=== PATIENT | male | born 1960 | race Caucasian/White ===

== ENCOUNTER 2016-10-22 07:35 | Emergency (ER) | payer OTHER ==
--- NOTE | 2016-10-22 09:21 | ED NURSING NOTES ---
Clinical Report - Nurses [facility] [address] [place] [address] 10/22/2016 7:36 Patient: SUMANTH HICKS TRIAGE Triage time 07:48. Chief Complaint: (middle back pain, right arm tingling, and short of breath). Alert. --07:51 Veda Jernigan R.N. 07:47 10/22/16. BP: 132/86. HR: 60. RR: 16. O2 saturation: 99%. Pain level now: 310. Additional comments: pain 3/10 now, was 10/10 dull stabbing pain at 6am. --07:51 Veda Jernigan R.N. 07:51 10/22/16. Temp: 98.3 F. --07:52 Veda Jernigan R.N. Weight: 76.2 kg stated. Height/Length: 69 inches Per Patient. BMI: 24.8. --07:50 Veda Jernigan R.N. Medications None. --07:48 Veda Jernigan R.N. Allergies No Known Drug Allergy. --07:48 Veda Jernigan R.N. History Arrived by private vehicle. Historian: patient. Unaccompanied. Primary physician (none). This started today. Onset. (6 AM). PAST MEDICAL HX: Tetanus status: up-to-date. SOCIAL HX: Never smoker. Alcohol use; consumes one beer occasionally. History of occasional drug use: marijuana. FALL RISK ASSESSMENT: Fall risk assessment completed. No fall risk identified. FUNCTIONAL ASSESSMENT: Functional assessment: no impairments noted. LEARNING NEEDS ASSESSMENT: The learning needs assessment revealed no barriers. --07:51 Veda Jernigan R.N. Treatment RENEWAL SPECIALIST: None. --07:51 Veda Jernigan R.N. PROBLEMS: Peripheral Nerve Entrapment. Tendonitis. Healing Puncture Wound. Puncture Wound. Bursitis. Arthritis. --07:49 Jernigan, Veda, R.N. ADDITIONAL SURGERIES: Ankle. Ear. Neck Surgery. Tonsillectomy. --07:49 Veda Jernigan R.N. Interventions ID band on patient. To room. --07:51 Veda Jernigan R.N. PHYSICAL ASSESSMENT 07:53 10/22/16. GENERAL / NEURO / PSYCH: Alert. Oriented X 4. RESPIRATORY: Respirations not labored. --07:53 Veda Jernigan R.N. NURSING PROGRESS NOTES 08:15 10/22/2016 Site #1 started via IV in the right forearm with an 20g angiocath; one attempt. Blood drawn: rainbow set. Labeled in the presence of the patient and sent to the lab. Saline lock flushed with 10 mL saline. --08:16 Veda Jernigan R.N. 08:16 10/22/2016 Aspirin PO 325 mg given. Allergies verified and confirmed 5 rights. --08:16 Veda Jernigan R.N. <<STRICKEN ENTRY-- 08:21 10/22/16. EKG time: (821). --08:22 Valeria Parks --END STRIKE>> Correction --08:22 Valeria Parks 08:22 10/22/16. EKG time: (821). EKG was performed by a tech and shown to the ED physician. --08:22 Valeria Parks 08:25. school lunch monitor, pulse oximeter and NIBP monitor placed on patient; compliance monitor- Lead II and V1; monitor alarms on. --08:45 Veda Jernigan R.N. DISPOSITION / DISCHARGE Departure time: 939. Condition at departure: unchanged. No learning barriers present. Discharge instructions provided and reviewed with the patient. Reviewed referral to family practice and a hand surgeon for followup. Verbalized understanding. Written instructions provided. The patient was discharged home. He left the Emergency Department ambulatory and via private vehicle. FALL RISK ASSESSMENT: Fall risk assessment completed. No fall risk identified. --10:00 Veda Jernigan R.N. 09:40 10/22/16. BP: 126/88. HR: 65. RR: 16. O2 saturation: 99%. Temp: 98 F. Pain level now: 08/29. --10:00 Veda Jernigan R.N. Locked/Released at 10/22/2016 10:05 by Veda Jernigan R.N.
--- NOTE | 2016-10-22 09:21 | ED NURSING NOTES ---
Clinical Report - Nurses [facility] [address] [place] [address] 10/22/2016 7:36 Patient: SUMANTH HICKS TRIAGE Triage time 07:48. Chief Complaint: (middle back pain, right arm tingling, and short of breath). Alert. --07:51 Veda Jernigan R.N. 07:47 10/22/16. BP: 132/86. HR: 60. RR: 16. O2 saturation: 99%. Pain level now: 310. Additional comments: pain 3/10 now, was 10/10 dull stabbing pain at 6am. --07:51 Veda Jernigan R.N. 07:51 10/22/16. Temp: 98.3 F. --07:52 Veda Jernigan R.N. Weight: 76.2 kg stated. Height/Length: 69 inches Per Patient. BMI: 24.8. --07:50 Veda Jernigan R.N. Medications None. --07:48 Veda Jernigan R.N. Allergies No Known Drug Allergy. --07:48 Veda Jernigan R.N. History Arrived by private vehicle. Historian: patient. Unaccompanied. Primary physician (none). This started today. Onset. (6 AM). PAST MEDICAL HX: Tetanus status: up-to-date. SOCIAL HX: Never smoker. Alcohol use; consumes one beer occasionally. History of occasional drug use: marijuana. FALL RISK ASSESSMENT: Fall risk assessment completed. No fall risk identified. FUNCTIONAL ASSESSMENT: Functional assessment: no impairments noted. LEARNING NEEDS ASSESSMENT: The learning needs assessment revealed no barriers. --07:51 Veda Jernigan R.N. Treatment VENTILATION MECHANIC: None. --07:51 Veda Jernigan R.N. PROBLEMS: Peripheral Nerve Entrapment. Tendonitis. Healing Puncture Wound. Puncture Wound. Bursitis. Arthritis. --07:49 Jernigan, Veda, R.N. ADDITIONAL SURGERIES: Ankle. Ear. Neck Surgery. Tonsillectomy. --07:49 Veda Jernigan R.N. Interventions ID band on patient. To room. --07:51 Veda Jernigan R.N. PHYSICAL ASSESSMENT 07:53 10/22/16. GENERAL / NEURO / PSYCH: Alert. Oriented X 4. RESPIRATORY: Respirations not labored. --07:53 Veda Jernigan R.N. NURSING PROGRESS NOTES 08:15 10/22/2016 Site #1 started via IV in the right forearm with an 20g angiocath; one attempt. Blood drawn: rainbow set. Labeled in the presence of the patient and sent to the lab. Saline lock flushed with 10 mL saline. --08:16 Veda Jernigan R.N. 08:16 10/22/2016 Aspirin PO 325 mg given. Allergies verified and confirmed 5 rights. --08:16 Veda Jernigan R.N. <<STRICKEN ENTRY-- 08:21 10/22/16. EKG time: (821). --08:22 Valeria Parks --END STRIKE>> Correction --08:22 Valeria Parks 08:22 10/22/16. EKG time: (821). EKG was performed by a tech and shown to the ED physician. --08:22 Valeria Parks 08:25. quality assurance monitor, pulse oximeter and NIBP monitor placed on patient; quality assurance monitor final- Lead II and V1; monitor alarms on. --08:45 Veda Jernigan R.N. DISPOSITION / DISCHARGE Departure time: 939. Condition at departure: unchanged. No learning barriers present. Discharge instructions provided and reviewed with the patient. Reviewed referral to family practice and a hand surgeon for followup. Verbalized understanding. Written instructions provided. The patient was discharged home. He left the Emergency Department ambulatory and via private vehicle. FALL RISK ASSESSMENT: Fall risk assessment completed. No fall risk identified. --10:00 Veda Jernigan R.N. 09:40 10/22/16. BP: 126/88. HR: 65. RR: 16. O2 saturation: 99%. Temp: 98 F. Pain level now: 08/29. --10:00 Veda Jernigan R.N. Locked/Released at 10/22/2016 10:05 by Veda Jernigan R.N.
--- NOTE | 2016-10-22 09:21 | ED ORDER SUMMARY ---
..... Patient: SUMANTH HICKS OrderSheet [facility] VisitID: [id number] [place] [address] 56y, M Registration Date/Time: 10/22/2016 ORDER SHEET Weight: 76.2 kg (stated) Allergies: No Known Drug Allergy GENERAL ORDERS: Chest 1V Urgent (07:59 10/22/2016 Opal FABIAN) (Ack 8:15 LNations ER Tech1) (8:16 LSullivan R.N.) Supervisor Fleshing (Continuous) (07:59 10/22/2016 Opal FABIAN) (Ack 8:13 LNations ER Tech1) (8:36 LSullivan R.N.) CBC w Diff Urgent (08:00 10/22/2016 Opal FABIAN) (Ack 8:14 LNations ER Tech1) (8:16 LSullivan R.N.) CMP Urgent (08:10/22/2016 Opal FABIAN) (Ack 8:14 LNations ER Tech1) (8:16 LSullivan R.N.) UA-Culture if indicated Urgent (08:00 10/22/2016 Opal FABIAN) (Ack 8:14 LNations ER Tech1) (8:36 LSullivan R.N.) PT with INR Urgent (08:00 10/22/2016 Opal FABIAN) (Ack 8:14 LNations ER Tech1) (8:16 LSullivan R.N.) PTT Urgent (08:00 10/22/2016 Opal FABIAN) (Ack 8:14 LNations ER Tech1) (8:16 LSullivan R.N.) Amylase Urgent (08:00 10/22/2016 Opal FABIAN) (Ack 8:14 LNations ER Tech1) (8:16 LSullivan R.N.) Lipase Urgent (08:00 10/22/2016 Opal FABIAN) (Ack 8:14 LNations ER Tech1) (8:16 LSullivan R.N.) BNP Urgent (08:00 10/22/2016 Opal FABIAN) (Ack 8:14 LNations ER Tech1) (8:16 LSullivan R.N.) D-Dimer Urgent (08:00 10/22/2016 Opal FABIAN) (Ack 8:14 LNations ER Tech1) (8:16 LSullivan R.N.) CPK Urgent (08:00 10/22/2016 Opal FABIAN) (Ack 8:15 LNations ER Tech1) (8:16 LSullivan R.N.) Troponin-I Urgent (08:00 10/22/2016 Opal FABIAN) (Ack 8:15 LNations ER Tech1) (8:16 LSullivan R.N.) Pulse oximeter (08:00 10/22/2016 Opal FABIAN) (Ack 8:13 LNations ER Tech1) (8:16 LSullivan R.N.) Oxygen (2 L/min) (NC) (08:00 10/22/2016 Opal FABIAN) (Ack 8:13 LNations ER Tech1) (10:04 LSullivan R.N.) EKG - ER Stat (08:00 10/22/2016 Opal FABIAN) (Ack 8:13 LNations ER Tech1) (8:21 oerner) MEDICATION ORDERS: Aspirin PO 325 mg (NOW) (08:00 10/22/2016 Opal FABIAN) (8:16 LSullivan R.N.) IV FLUIDS: IV Saline Lock (08:00 10/22/2016 Opal FABIAN) (8:16 LSullivan R.N.) ORDER SHEET NOTES: [Electronically signed by Yusef Coley MD (09:30 10/22/2016)] [Electronically signed by Veda Jernigan R.N. (10:05 10/22/2016)] [Electronically locked/signed by Veda Jernigan R.N. (10:10/22/2016)]
--- NOTE | 2016-10-22 09:21 | ED CLINICAL REPORT ---
Clinical Report - Physicians/Mid Levels [facility] [address] [address] 10/22/2016 7:36 Patient: SUMANTH HICKS Time Seen: 08:00. Arrived- By private vehicle. Historian- patient. HISTORY OF PRESENT ILLNESS Chief Complaint: CHEST PAIN. At its maximum, severity described as severe. When seen in the E.D., severity described as moderate. This started today and is now gone. It was abrupt in onset and has been constant. Onset during light activity. It is described as located in the interscapular area of the back. No nausea or vomiting. He has had difficulty breathing (for about 30 minutes). REVIEW OF SYSTEMS The patient has had mild pedal edema involving the right leg (for 1 week or so). No palpitations. All systems otherwise negative, except as recorded above. SOCIAL HISTORY Never smoker. Occasional alcohol use. History of occasional drug use: marijuana. FAMILY HISTORY No history of aortic aneurysm or dissection. Heart disease in first-degree relative (father); cancer in first-degree relative (mother). ADDITIONAL NOTES The nursing notes have been reviewed. PHYSICAL EXAM Vital Signs: 10/22/2016 07:47 BP: 132/86. HR: 60. RR: 16. O2 saturation: 99%. Pain level now: 3/10. Have been reviewed. Appearance: Alert. Eyes: Pupils equal, round and reactive to light. ENT: Pharynx normal. Neck: Neck supple. CVS: Normal heart rate and rhythm. Heart sounds normal. Respiratory: No respiratory distress. Breath sounds normal. Abdomen: Soft and nontender. Bowel sounds normal. No organomegaly. No mass. Back: Normal external inspection. No CVA tenderness. Skin: Skin warm and dry. Normal skin color. Normal skin turgor. Extremities: Extremities exhibit normal ROM. No calf tenderness. No lower extremity edema. LABS, X-RAYS, AND EKG EKG: No acute process. Rate: 56. Prior EKG unavailable. EKG unchanged when compared with prior EKG. ( from [place]). The study has been independently viewed by me. Chest X-ray: No acute disease. The X-rays were independently viewed by me. Laboratory Tests: UA-Culture if indicated: (GUI: 10/22/2016 08:30) ( MsgRcvd 10/22/2016 08:49) Final results Test Result Flag Units (Reference) URINE COLOR YELLOW URINE APPEARANCE CLEAR URINE GLUCOSE NEGATIVE (NEGATIVE) URINE BILIRUBIN NEGATIVE (NEGATIVE) URINE KETONE NEGATIVE (NEGATIVE) URINE SPECIFIC GRAVITY 1.015 (1.010-1.030) URINE PH 5.5 (5.0-8.0) URINE PROTEIN NEGATIVE (NEGATIVE) URINE UROBILINOGEN 0.2 EU/dL (0.2-1.0) URINE NITRITE NEGATIVE (NEGATIVE) URINE BLOOD NEGATIVE (NEGATIVE) URINE LEUK ESTERASE NEGATIVE (NEGATIVE) URINE RBC NONE SEEN rbc/hpf (0-1) URINE WBC RARE wbc/hpf (0-1) URINE EPITHELIAL CELLS RARE EPI/hpf (0-5) URINE BACTERIA TRACE (<1+) (NONE SEEN) URINE COMMENT CULT NOT INDICATED 1+ MUCOUSURINE CULTURES ARE SET-UP BASED ON THE FOLLOWING CRITERIA:POSITIVE NITRITEPOSITIVE LEUKOCYTE ESTERASEGREATER THAN 10 WHITE BLOOD CELLSMODERATE (2+) OR GREATER BACTERIA CBC w Diff: (GUI: 10/22/2016 08:10) ( MsgRcvd 10/22/2016 08:21) Final results Test Result Flag Units (Reference) WHITE BLOOD COUNT 4.4 L K/uL (4.5-11.5) RED BLOOD COUNT 5.10 M/uL (4.50-5.90) HEMOGLOBIN 16.1 gm/dL (13.5-17.5) HEMATOCRIT 46.9 % (41.0-53.0) MEAN CELL VOLUME 92 fL (80-100) MEAN CORPUSCULAR HGB 32 pg (26-34) MEAN CORPUSCULAR HGB CONC 34 g/dL (31-37) RED CELL DISTRIBUTION WIDTH 13.0 % (11.6-14.8) PLATELET COUNT 235 K/uL (150-400) NEUTROPHIL % 62.6 % (50-75) LYMPH % 26.8 % (25-40) MONO % 8.2 % (3-14) EOSINOPHIL % 1.7 % (0-4) BASOPHIL % 0.7 % (0-2) PT with INR: (GUI: 10/22/2016 08:10) ( [facility] 10/22/2016 08:54) Final results Test Result Flag Units (Reference) INR 0.9 (0.8-1.2) Low Intensity Therapy: INR 1.5-2.0 PT range 18.5-23.1Mod.Intensity Therapy: INR 2.0-3.0 PT range 23.1-31.5High Intensity Therapy: INR 2.5-3.5 PT range 27.4-35.5High Intensity Therapy 2: INR 3.0-4.0 PT range 31.5-39.3 APTT 32 SECONDS (24-34) D-DIMER QUANTITATIVE < 0.27 L ug/mLFEU (0.27-0.52) The primary value of this quantitative assay relates toits negative predictive value (i.e. exclusion) of pulmonaryembolism/deep vein thrombosis/DIC.Elevated levels of d-dimer may also occur with:, age, cancer, inflammation, liver disease,post-op, infection, hematoma, coronary disease, peripheralarteriopathy, bleeding disorders and thrombolytic treatment.Results should be correlated with other clinical andradiological data.Testing Methodology: Latex Immunoassay BNP: (GUI: 10/22/2016 08:10) ( [facility] 10/22/2016 08:51) Final results Test Result Flag Units (Reference) B-TYPE NATRIURETIC PEPTIDE 9.2 pg/ml (5-100) CMP: (GUI: 10/22/2016 08:10) ( [facility] 10/22/2016 08:37) Final results Test Result Flag Units (Reference) GLUCOSE 119 H mg/dL (70-110) BUN 19 H mg/dL (7-18) CREATININE 1.1 mg/dL (0.6-1.3) Estimated GFR >60 mL/min Estimated GFR- >60 mL/min Note: Persistent reduction over 3 months in eGFR<60 mL/min/1.73 m2 defines CKD. Patients with eGFR values>=60 mL/min/1.73 m2 may also have CKD if evidence ofpersistent proteinuria. Additional information may be foundat www.kidney.org. SODIUM 141 mmol/L (136-145) POTASSIUM 4.2 mmol/L (3.5-5.1) CHLORIDE 107 mmol/L (98-107) CARBON DIOXIDE 23 mmol/L (21-32) CALCIUM 8.4 L mg/dL (8.5-10.1) TOTAL PROTEIN 7.2 g/dL (6.4-8.2) ALBUMIN 3.7 g/dL (3.3-5.0) BILIRUBIN, TOTAL 0.3 mg/dL (0.0-1.0) ALKALINE PHOSPHATASE 73 U/L (46-116) AST (SGOT) 29 U/L (15-37) ALT (SGPT) 46 U/L (12-78) LIPASE 156 U/L (73-393) AMYLASE 69 U/L (25-115) CPK 182 U/L (24-260) TROPONIN I <0.05 L ng/mL (0.00-1.5) TROPONIN REFERENCE RANGE:<0.1 NEGATIVE0.1-1.5 INDETERMINANT>1.5 POSITIVE . PROGRESS AND PROCEDURES Patient/family counseled. Old medical records ordered. Disposition: Discharged. Condition: stable. CLINICAL IMPRESSION Acute dyspnea Acute back pain. Neuropathy. INSTRUCTIONS Warnings: Further evaluation is necessary. GENERAL WARNINGS: Return or contact your physician immediately if your condition worsens or changes unexpectedly, if not improving as expected, or if other problems arise. Follow-up: Follow up with a hand surgeon- as recommended by your primary care physician. Understanding of the discharge instructions verbalized by patient. Follow-up with: [facility], , , [address], , [place], [address] Follow up in seven days. Call for the next available appointment. (Electronically signed by Yusef Coley MD 10/22/2016 9:30)
--- NOTE | 2016-10-22 09:21 | ED ORDER SUMMARY ---
..... Patient: SUMANTH HICKS OrderSheet [facility] VisitID: [id number] [place] [address] 56y, M Registration Date/Time: 10/22/2016 ORDER SHEET Weight: 76.2 kg (stated) Allergies: No Known Drug Allergy GENERAL ORDERS: Chest 1V Urgent (07:59 10/22/2016 Opal FABIAN) (Ack 8:15 LNations ER Tech1) (8:16 LSullivan R.N.) Senior Underwriting Assistant (Continuous) (07:59 10/22/2016 Opal FABIAN) (Ack 8:13 LNations ER Tech1) (8:36 LSullivan R.N.) CBC w Diff Urgent (08:00 10/22/2016 Opal FABIAN) (Ack 8:14 LNations ER Tech1) (8:16 LSullivan R.N.) CMP Urgent (08:10/22/2016 Opal FABIAN) (Ack 8:14 LNations ER Tech1) (8:16 LSullivan R.N.) UA-Culture if indicated Urgent (08:00 10/22/2016 Opal FABIAN) (Ack 8:14 LNations ER Tech1) (8:36 LSullivan R.N.) PT with INR Urgent (08:00 10/22/2016 Opal FABIAN) (Ack 8:14 LNations ER Tech1) (8:16 LSullivan R.N.) PTT Urgent (08:00 10/22/2016 Opal FABIAN) (Ack 8:14 LNations ER Tech1) (8:16 LSullivan R.N.) Amylase Urgent (08:00 10/22/2016 Opal FABIAN) (Ack 8:14 LNations ER Tech1) (8:16 LSullivan R.N.) Lipase Urgent (08:00 10/22/2016 Opal FABIAN) (Ack 8:14 LNations ER Tech1) (8:16 LSullivan R.N.) BNP Urgent (08:00 10/22/2016 Opal FABIAN) (Ack 8:14 LNations ER Tech1) (8:16 LSullivan R.N.) D-Dimer Urgent (08:00 10/22/2016 Opal FABIAN) (Ack 8:14 LNations ER Tech1) (8:16 LSullivan R.N.) CPK Urgent (08:00 10/22/2016 Oapl FABIAN) (Ack 8:15 LNations ER Tech1) (8:16 LSullivan R.N.) Troponin-I Urgent (08:00 10/22/2016 Opal FABIAN) (Ack 8:15 LNations ER Tech1) (8:16 LSullivan R.N.) Pulse oximeter (08:00 10/22/2016 Opal FABIAN) (Ack 8:13 LNations ER Tech1) (8:16 LSullivan R.N.) Oxygen (2 L/min) (NC) (08:00 10/22/2016 Opal FABIAN) (Ack 8:13 LNations ER Tech1) (10:04 LSullivan R.N.) EKG - ER Stat (08:00 10/22/2016 Opal FABIAN) (Ack 8:13 LNations ER Tech1) (8:21 oerner) MEDICATION ORDERS: Aspirin PO 325 mg (NOW) (08:00 10/22/2016 Opal FABIAN) (8:16 LSullivan R.N.) IV FLUIDS: IV Saline Lock (08:00 10/22/2016 Opal FABIAN) (8:16 LSullivan R.N.) ORDER SHEET NOTES: [Electronically signed by Yusef Coley MD (09:30 10/22/2016)] [Electronically signed by Veda Jernigan R.N. (10:05 10/22/2016)] [Electronically locked/signed by Veda Jernigan R.N. (10:10/22/2016)]
--- NOTE | 2016-10-22 10:05 | ED MAR SUMMARY ---
..... Medication Administration Record [facility] [address] [place] [address] Patient: SUMANTH HICKS Visit ID: [id number] 56y, M Weight: 76.2 kg Height/Length: 69 in BMI: 24.8 ALLERGIES: No Known Drug Allergy Given 08:16 10/22/2016 Veda Jernigan RAdrian Medication Administered: ASPIRIN [PO], Dose: 325 mg PO. Medication Ordered: Aspirin PO 325 mg (NOW).
--- NOTE | 2016-10-22 10:05 | ED MED RECONCILIATION SUMMARY ---
Patient: FABIOLASUMANTH Medication Reconciliation Report [facility] VisitID: [id number] [address] [place] [address] 56y, M Registration Date/Time: 10/22/2016 Weight: 76.2 kg Height/Length: 69 in. BMI: 24.8 ALLERGIES: No Known Drug Allergy The patient's Home Medications are listed below: NONE. The source(s) of the original Home Medication information: Not obtained. The following Medications were given to the patient in the Emergency Department: Aspirin [PO] PO 325 mg, administered: 10/22/2016 8:16:00 AM The following Medications were prescribed to the patient: None.
--- NOTE | 2016-10-22 10:05 | ED MED RECONCILIATION SUMMARY ---
Patient: FABIOLASUMANTH Medication Reconciliation Report [facility] VisitID: [id number] [address] [place] [place] [address] 56y, M Registration Date/Time: 10/22/2016 Weight: 76.2 kg Height/Length: 69 in. BMI: 24.8 ALLERGIES: No Known Drug Allergy The patient's Home Medications are listed below: NONE. The source(s) of the original Home Medication information: Not obtained. The following Medications were given to the patient in the Emergency Department: Aspirin [PO] PO 325 mg, administered: 10/22/2016 8:16:00 AM The following Medications were prescribed to the patient: None.
--- NOTE | 2016-10-22 10:05 | ED DISCHARGE INSTRUCTIONS ---
Patient: SUMANTH HICKS General Instructions Merged With [facility] VisitID: [id number] [address] [place] [address] 56y, M Registration Date/Time: 10/22/2016 Acute dyspnea Acute back pain. Neuropathy. INSTRUCTIONS Warnings: Further evaluation is necessary. GENERAL WARNINGS: Return or contact your physician immediately if your condition worsens or changes unexpectedly, if not improving as expected, or if other problems arise. Follow-up: Follow up with a hand surgeon- as recommended by your primary care physician. Understanding of the discharge instructions verbalized by patient. Follow-up with: [facility], , , [address], [place], [id number] Follow up in seven days. Call for the next available appointment. ADDITIONAL INFORMATION Dyspnea (Shortness Of Breath) Shortness of Breath (also known as "Dyspnea") is the sense that you can't catch your breath or can't get enough air. Dyspnea can be caused by many different conditions such as: Acute asthma attack Worsening of emphysema (also called "COPD") -- a lung diseasethat is caused by smoking A mucus plug blocks a large air passage in the lung -- this can occur with emphysema or chronic bronchitis Congestive Heart Failure ("CHF") -- when a weak heart muscle allows excess fluid to collect inthe lungs Panic attacks, anxiety -- fear can cause rapid breathing ("hyperventilation") Pneumonia -- infection in the lung tissue Exposure to toxic fumes or smoke Pulmonary embolus (blood clot to the lung) Based on your visit today, the exact cause of your shortness of breath is not certain. Your tests do not show any of the serious causes of dyspnea. Sometimes, further testing is needed to find out if a serious problem exists. Therefore, it is important for you to watch for any new symptoms or worsening of your condition and follow up with your doctor as directed. Home Care: When your symptoms are better, resume your usual activities. If you smoke, you need to stop. Join a stop-smoking program or ask your doctor for help. Follow Up with your doctor or as advised by our staff. Get Prompt Medical Attention if any of the following occur: Increasing shortness of breath or wheezing Redness, pain or swelling in one leg Swelling in both legs or ankles Unexpected weight gain Chest, arm, shoulder, neck or upper back pain Dizziness, weakness or fainting Palpitations (the sense that your heart is fluttering, beating fast or hard) Fever of 100.4F (38C) or higher, or as directed by your healthcare provider Cough with dark colored or bloody sputum (mucus) Back Pain [Acute Or Chronic] Back pain is usually caused by an injury to the muscles or ligaments of the spine. Sometimes the disks that separate each bone in the spine may bulge and cause pain by pressing on a nearby nerve. Back pain may also appear after a sudden twisting/bending force (such as in a car accident), after a simple awkward movement, or lifting something heavy with poor body positioning. In either case, muscle spasm is often present and adds to the pain. Acute back pain usually gets better in one to two weeks. Back pain related to disk disease, arthritis in the spinal joints or spinal stenosis (narrowing of the spinal canal) can become chronic and last for months or years. Unless you had a physical injury (for example, a car accident or fall) X-rays are usually not ordered for the initial evaluation of back pain. If pain continues and does not respond to medical treatment, x-rays and other tests may be performed at a later time. Home Care: You may need to stay in bed the first few days. But, as soon as possible, begin sitting or walking to avoid problems with prolonged bed rest (muscle weakness, worsening back stiffness and pain, blood clots in the legs). When in bed, try to find a position of comfort. A firm mattress is best. Try lying flat on your back with pillows under your knees. You can also try lying on your side with your knees bent up towards your chest and a pillow between your knees. Avoid prolonged sitting. This puts more stress on the lower back than standing or walking. During the first two days after injury, apply an ICE PACK to the painful area for 20 minutes every 2-4 hours. This will reduce swelling and pain. HEAT (hot shower, hot bath or heating pad) works well for muscle spasm. You can start with ice, then switch to heat after two days. Some patients feel best alternating ice and heat treatments. Use the one method that feels the best to you. You may use acetaminophen (Tylenol) or ibuprofen (Motrin, Advil) to control pain, unless another pain medicine was prescribed. [NOTE: If you have chronic liver or kidney disease or ever had a stomach ulcer or GI bleeding, talk with your doctor before using these medicines.] Be aware of safe lifting methods and do not lift anything over 15 pounds until all the pain is gone. Follow Up with your doctor or this facility if your symptoms do not start to improve after one week. Physical therapy may be needed. [NOTE: If X-rays were taken, they will be reviewed by a radiologist. You will be notified of any new findings that may affect your care.] Get Prompt Medical Attention if any of the following occur: Pain becomes worse or spreads to your legs Weakness or numbness in one or both legs Loss of bowel or bladder control Numbness in the groin or genital area Peripheral Neuropathy Peripheral Neuropathy is a condition that affects the nerves of the arms or legs. It causes a change in physical feeling. Sometimes it causes weakness in the muscles. You may feel tingling, numbness or shooting pains (especially at night). You may be sensitive to light touch or temperature changes. Neuropathy may be caused by being exposed to certain drugs or chemicals, or because of a vitamin deficiency. It can be a complication of a chronic disease such as diabetes or alcoholism. A ruptured disk with pressure on the spinal nerve may also cause this condition. Home Care: 1) You may take acetaminophen (Tylenol) or ibuprofen (Advil, Motrin) for pain, unless another pain medicine has been prescribed. 2) If the neuropathy affects your feet, keep your toenails trimmed and wash your feet often. Wear shoes that fit well. Doing so avoids pressure points, blisters and ulcers. Due to a loss of feeling, you may not notice injuries, so look at your feet carefully (including the soles of your feet and between your toes) at least once a week. Tell your doctor if you have any open wounds or signs of infection. 3) If vitamins have been prescribed, be sure to remind yourself to take them daily. Follow Up with your doctor or as advised by our staff. You may need further testing to find out the exact cause of your neuropathy. Get Prompt Medical Attention if any of the following occur: -- Redness, swelling or pus coming from the toes or feet -- Loss of bowel or bladder control (if this is a new symptom for you) -- Muscle weakness (if this is a new symptom for you) You have been given the following additional information: Dyspnea Back Pain (Acute Or Chronic) Neuropathy, Peripheral (Electronically signed by Yusef Coley MD 10/22/2016 9:30)
--- NOTE | 2016-10-22 10:05 | ED MAR SUMMARY ---
..... Medication Administration Record [facility] [address] [place] [address] Patient: SUMANTH HICKS Visit ID: [id number] 56y, M Weight: 76.2 kg Height/Length: 69 in BMI: 24.8 ALLERGIES: No Known Drug Allergy Given 08:16 10/22/2016 Veda Jernigan RAdrian Medication Administered: ASPIRIN [PO], Dose: 325 mg PO. Medication Ordered: Aspirin PO 325 mg (NOW).
--- NOTE | 2016-10-22 10:22 | DIAGNOSTIC IMAGING REPORT ---
PROCEDURE: XR CHEST 1 VIEW INDICATION: SHORTNESS OF BREATH TECHNIQUE: Portable AP view 08:08 a.m. COMPARISON: None. FINDINGS: Lungs are clear. Heart and mediastinum are normal. Thorax is normal. IMPRESSION: 1. Negative chest.
== END 2016-10-22 09:40 | disposition home or self-care (01) ==
LOC: ED SRH 07:35
DX: R06.00 Dyspnea, unspecified (principal); M54.9 Dorsalgia, unspecified; G62.9 Polyneuropathy, unspecified
CPT/HCPCS: 90004; 90100; 90616; 91320; 91556; 92235; 92530; 92610; 94001; 94060; 95059